=== PATIENT | male | born 1965 | race Two or more races ===

== ENCOUNTER 2017-03-28 05:59 | Day surgery (SDC) | payer BC ==
[2017-03-28 06:52] VITALS: BMI 26.9
[2017-03-28] MEDS ORDERED: BUPIVACAINE HCL/PF 2.5 MG/ML - 30 ML VIAL IJ ONE (07:08)
[2017-03-28] MEDS ORDERED: EPINEPHrine 1:1,000 1 MG/1 ML - 30ML VIAL (INJECTION) ONE (07:08)
[2017-03-28] MEDS ORDERED: MIDAZOLAM HCL 2 MG/2 ML SINGLE DOSE VIAL ONE (07:17)
[2017-03-28] MEDS ORDERED: SUCCINYLCHOLINE CHLORIDE 200 MG/10 ML VIAL ONE (07:23)
[2017-03-28] MEDS ORDERED: LIDOCAINE HCL 2% 100 MG/5 ML DISP.SYRIN ONE (07:23)
[2017-03-28] MEDS ORDERED: PROPOFOL 20 ML ONE ×2 (07:23)
[2017-03-28] MEDS ORDERED: ceFAZolin SODIUM 1 GM VIAL ONE (07:46)
[2017-03-28] MEDS ORDERED: DEXAMETHASONE SOD PHOSPHATE 4 MG/1 ML VIAL ONE (07:49)
[2017-03-28] MEDS ORDERED: ONDANSETRON 4 MG/2 ML VIAL ONE ×2 (07:49→09:44)
[2017-03-28] MEDS ORDERED: KETOROLAC TROMETHAMINE 30 MG/1 ML VIAL ONE (07:53)
[2017-03-28] MEDS ORDERED: BUPIVACAINE HCL/PF 0.25% (2.5MG/ML) 10 ML VIAL IJ ONE (08:52)
[2017-03-28] MEDS ORDERED: oxyCODONE HCL 5 MG TABLET PO PRN (08:54)
[2017-03-28] MEDS ORDERED: ONDANSETRON 4 MG/2 ML VIAL IVPUSH PRN (08:54)
[2017-03-28] MEDS ORDERED: LACTATED RINGERS SOLUTION 1,000 ML IV SCH (09:00)
--- NOTE | 2017-03-28 09:49 | OP ---
Operative Note - Note: Operative Date: 03/28/17 Pre-Operative Diagnosis: LEFT KNEE: POSTERIOR HORN MEDIAL MENISCUS TEAR Operation: 1. SURGICAL ARTHROSCOPY LEFT KNEE. 2. PARTIAL MEDIAL MENISCECTOMY. 3. CHONDROPLASTY MEDIAL FEMORAL CONDYLE. 4. CHONDROPLASTY LATERAL PATELLAR FACET Findings: 1. PARTIAL TEAR POSTERIOR HORN MEDIAL MENISCUS 2. CHONDROMALACIA PATELLOFEMORAL JOINT 3. CHONDROMALACIA MEDIAL FEMORAL CONDYLE Surgeon: Richie Brown Anesthesia: General Estimated Blood Loss (mls): 5 Operative Report Dictated: Yes
[2017-03-28 10:19] VITALS: TEMP 98.2
[2017-03-28 11:08] VITALS: BP 133/74; PULSE 65
--- NOTE | 2017-03-28 11:57 | OP ---
DATE OF OPERATION: 03/28/2017 SURGEON: Richie Brown MD [employer]: None. PREOPERATIVE DIAGNOSIS: Left medial meniscus tear. POSTOPERATIVE DIAGNOSES: 1. Left medial meniscus tear. 2. Chondromalacia, patellofemoral joint. 3. Chondromalacia, medial femoral condyle. SURGICAL PROCEDURE: 1. Surgical arthroscopy, left knee. 2. Partial medial meniscectomy. 3. Chondroplasty, lateral patellar facet. 4. Chondroplasty, medial femoral condyle. ANESTHESIA: General endotracheal tube anesthesia. POSITION: Supine. INCISION: Standard anteromedial and anterolateral arthroscopy portals. ESTIMATED BLOOD LOSS: Minimal. INTRAVENOUS FLUIDS: See anesthesia record. SPECIMENS: Shavings. DRAINS: None. COMPLICATIONS: None. URINE OUTPUT: None. BACTERIOLOGY: None. TRANSFUSIONS: None. CLOSURE: Nylon 3-0. INDICATIONS: The patient is a 51-year-old gentleman who presented to our outpatient office and his history, clinical examination, and radiographic findings revealed a medial meniscus tear on the left side. He was indicated for a surgical arthroscopy of the left knee with partial medial meniscectomy and possible chondroplasty in order to facilitate early motion and mobilization and to prevent complications associated with prolonged bedrest and immobilization. Patient was identified in the holding area by his arm band. A long discussion was held with the patient in the presence of his family regarding the risks, benefits, and alternatives of the above-named procedure. Risks include, but are not limited to: Pain, bleeding, infection, damage to surrounding structures (including nerves, blood vessels, skin, ligaments, tendons, and bone), wound complications, need for further surgery, blood clots, myocardial infarction, pulmonary embolism, anesthesia complications, compartment syndrome, limb loss, loss of function, limp, and . Benefits as mentioned above. Alternatives include no surgery. All questions were answered. The patient and family understood and agreed to the procedure. Informed consent was obtained, witnessed and verified. The patient's correct operative limb - that is, the left lower extremity - was marked and the patient was taken to the operating room after being seen by the anesthesia and nursing staff. PROCEDURE: The patient was brought into the operating room, placed on the OR table, and secured with a safety strap. Consent and the operative site were again verified with the patient and nursing and anesthesia staff. Anesthesia was then administered without complication, including 2 g of IV Ancef for antibiosis. Timeout was done led by me, the attending surgeon. The patient was positioned with bony prominences well padded and the tourniquet was placed proximally on the left thigh and set to 250 mmHg. Operative site was then prepped and draped in the standard sterile fashion. Timeout was again done. The limb was exsanguinated using an Esmarch. The tourniquet was inflated and the case began. Standard anterolateral arthroscopy portal was made into the left knee. After this, the arthroscope was introduced and the knee was insufflated using normal saline with epinephrine for hemostasis. With the arthroscope in the patellofemoral pouch, the patellofemoral joint was then visualized and grade 3 chondromalacia of both the lateral patellar facet as well as the trochlear sulcus of the femur was noted. The arthroscope was then delivered via the medial gutter of the knee where no loose bodies were seen into the medial joint space where valgus stress applied to the knee allowed easy delivery of the arthroscope into the medial joint space. At that point, a complex tear of the posterior horn of the medial meniscus was identified. In addition, grade 2 chondromalacia of the medial femoral condyle was identified. At that point, an 18-gauge spinal needle was used to triangulate the standard anteromedial portal entry site into the knee. An 11 blade was then used to create the standard anteromedial portal. The trocar was then introduced into the medial joint space followed by a probe. The probe was used to demonstrate the instability and extent of the degenerative tear as well as the depth of the chondromalacia of the medial femoral condyle. Next, the straight biters were used to debride the posterior horn of the medial meniscus. After that, a standard 3.5-mm shaver was introduced into the medial compartment and the meniscus was further debrided to a stable peripheral rim. This was a partial medial meniscectomy. The shaver was then used to perform gentle chondroplasty of any loose medial femoral condylar fragments of cartilage. Next, the arthroscope was taken across the middle of the knee where the ACL and ligamentum mucosum were deemed to be intact with no significant hyperemia or degeneration. The stability of the ACL was demonstrated again using a probe. Next, the leg was positioned in a figure 4 fashion and the arthroscope was delivered into the lateral compartment of the knee where the meniscus was found to be intact, but there was a lesion in the lateral femoral condyle consistent again with grade 2 chondromalacia of the lateral femoral condyle. Next, the arthroscope was delivered into the lateral gutter of the knee where no loose bodies were seen. The arthroscope was once again returned to the suprapatellar pouch and 4 to 5 L of fluid were used to irrigate and lavage the knee joint. Pictures were taken during all of the aforementioned steps. The knee was then drained as fluid inflow was clamped and suction was used to aspirate the knee entirely. About 8 mL of 0.25% Marcaine was used to provide analgesia at the incision sites. Hemostasis was assured. The wound was closed primarily using 3-0 nylon sutures in figure-of-8 suture fashion. A sterile compressive dressing was applied. The tourniquet was then released at a final time of 35 minutes. The sponge and needle counts were correct at the end of the case and I, the attending surgeon, was present and scrubbed throughout the case. The patient was then extubated by the anesthesia staff without incident or complications and was then transferred to the recovery room in stable condition, having tolerated the procedure well. MD JACK Chatman/[id number]
--- NOTE | 2017-04-03 15:32 | PATH ---
Surgical Pathology Report Patient Name: OMAIRA KIM [facility]. Rec. #: [id number] /Age/Gender: 1965 (Age: 51) / M Account: [id number] Location: [facility] Taken: 03/28/2017 Received: 03/28/2017 Reported: 04/04/2017 Physicians: Richie Brown M.D. Specimen(s) Received LEFT KNEE SHAVINGS Clinical History Posterior medial meniscus tear Final Diagnosis KNEE, LEFT, ARTHROSCOPIC SHAVINGS: CARTILAGE AND FIBROSYNOVIAL TISSUE. Electronically Signed Indu De Souza M.D. Gross Description Received in formalin labeled "right knee shavings," is a 1.0 x 0.8 x 0.2 cm aggregate of grimes-yellow soft tissue fragments. The formalin is filtered and the specimen is entirely submitted in one cassette. 03/28/201703/28/2017
== END 2017-03-28 11:11 | disposition home or self-care (01) ==
LOC: FASU 05:59
PROVIDERS: ATTEND Orthopaedic Surgery Adult Reconstructive Orthopaedic Surgery
PROC: 0SBD4ZZ Excision of Left Knee Joint, Percutaneous Endoscopic Approach (ICD-10-PCS; 2017-03-28)
PROC: 0SBD4ZZ Excision of Left Knee Joint, Percutaneous Endoscopic Approach (ICD-10-PCS; principal; 2017-03-28 07:30)
DX: M23.222 Derangement of posterior horn of medial meniscus due to old tear or injury, left knee (principal); M22.42 Chondromalacia patellae, left knee
CPT/HCPCS: 88304-TC; 94760